=== PATIENT | male | born 1945 | race Caucasian/White ===

== ENCOUNTER → 2020-06-10 15:59 | Outpatient (CLI) | payer MEDICARE, SELFPAY ==
[2020-06-10] MEDS: COVID-19 VACC #1, MRNA(MOD) 100 MCG/0.5 ML VIAL IM (16:04)
== END ==
PROVIDERS: Family Provider Internal Medicine; PCP Internal Medicine; Visit Provider Internal Medicine
DX: Z23 Encounter for immunization (principal)
CPT/HCPCS: 0011A; 91301

== ENCOUNTER → 2020-07-08 09:46 | Outpatient (CLI) | payer MEDICARE, SELFPAY ==
[2020-07-08] MEDS: COVID-19 VACC #2, MRNA(MOD) 100 MCG/0.5 ML VIAL IM (09:52)
== END ==
PROVIDERS: Family Provider Internal Medicine; PCP Internal Medicine; Visit Provider Internal Medicine
DX: Z23 Encounter for immunization (principal)
CPT/HCPCS: 0012A; 91301

== ENCOUNTER 2023-05-24 09:32 | Day surgery (SDC) | payer OTHER, SELFPAY ==
--- NOTE | 2023-05-24 | PATH_ITS ---
[facility] Accession Number: [id number] No. of containers..02 Tissue . 01 Material submitted: . PART A: splenic flexure - SPLENIC POLYP PART B: rectosigmoid junction - RECTOSIGMOID POLYP . 01 Diagnosis: A. COLON, SPLENIC POLYP BIOPSY: - SESSILE SERRATED ADENOMA. -- B. COLON, RECTOSIGMOID, POLYP BIOPSY: - HYPERPLASTIC POLYP. TXN 05/26/2023 1436 Local . 01 Electronically signed: . Jr Massey MD, Pathologist NPI- [id number] . 01 Gross description: . Part A: SPLENIC POLYP: Received in formalin is 1 fragment(s) of rothman, soft tissue measuring 0.3 x 0.2 x 0.2 cm submitted entirely in 1 cassette(s) Part B: RECTOSIGMOID POLYP: Received in formalin is 1 fragment(s) of rothman, soft tissue measuring 0.3 x 0.2 x 0.2 cm submitted entirely in 1 cassette(s) /AAY 05/25/2023 0525 Local . 01 Pathologist provided ICD-10: Z86.010 . 01 CPT . 381326, [id number] Specimen Comment: A courtesy copy of this report has been sent to [phone] Performed at: 01 [facility] [address] [place] [address] [address], [place], [place] [id number] MD Cipriano Rincon MD Phone: [phone]
[2023-05-24 09:52] VITALS: BMI 35.4
[2023-05-24 10:11] VITALS: BP 132/70; PULSE 58; RESP 20; TEMP 37; O2SAT 95
[2023-05-24] MEDS: LACTATED RINGERS 1,000 ML 42 ML IV (10:14)
--- NOTE | 2023-05-24 10:36 | PM.HP.1 ---
History of Present Illness History of Present Illness Date Patient Seen: 05/24/23 Chief complaint: SDC Narrative: Personal history of colon polyps PFSH Medical History (Updated 05/24/23 @ 10:09 by Patel Bhatia RN) A-fib Surgical History (Updated 05/24/23 @ 09:54 by Patel Bhatia RN) Hx of laparoscopic gastric banding Social History Smoking Status: Former smoker alcohol intake: current Meds Home Medications and Allergies Home Medications Medication Instructions Recorded Confirmed Type allopurinol 100 mg tablet 100 mg PO QDAY ##0 01/24/17 05/24/23 History polyethylene glycol 3350 17 gram 17 g PO DAILY ##0 01/24/17 05/24/23 History oral powder packet pravastatin 10 mg tablet 10 mg PO QDAY ##0 01/24/17 05/24/23 History dabigatran etexilate 150 mg 150 mg PO BID 05/24/23 05/24/23 History capsule (Pradaxa) fluticasone propionate 50 1 spray intranasal DAILY PRN 05/24/23 05/24/23 History mcg/actuation nasal allergies spray,suspension losartan 25 mg tablet 25 mg PO DAILY 05/24/23 05/24/23 History Allergies Allergy/AdvReac Type Severity Reaction Status Date / Time No Known Drug Allergies Allergy Verified 05/24/23 09:52 Exam Vital Signs (past 8 hours): - 05/24/23 10:11 Temperature 98.6 F Pulse Rate 58 L Respiratory Rate 20 Blood Pressure 132/70 Pulse Oximetry 95 Oxygen Delivery Method Room Air Oxygen Delivery Method Room Air Narrative Exam Narrative: Oropharynx free of lesions Chest clear to auscultation percussion Cardiac exam reveals no S3 or murmur Assessment & Plan Assessment & Plan narrative: Personal history of colon polyps due for follow-up colonoscopy. Risks, benefits, alternatives have been explained.
--- NOTE | 2023-05-24 10:38 | PM.OP.COLON ---
Operative Date/Time/Diagnoses Date of procedure: 05/24/23 Pre-op diagnosis: See indication and findings Procedure & Clinicians Study performed: Colonoscopy Indications: History of colon polyps Surgeon: Ivelisse Gutierrez Procedure Notes Procedure in detail: After informed consent was obtained the patient was placed in left lateral decubitus position. The video colonoscope was introduced into the rectum slowly advanced to the cecum. On slow withdrawal mucosa was carefully examined. The scope was removed. The patient tolerated procedure well. Preparation was good. Blood loss none Complications none Sedation mac Findings 1. 4 mm polyp at the splenic flexure Jumbo biopsy removed completely 2. 5 mm polyp the rectosigmoid. Jumbo biopsy removed completely 3. Scattered sigmoid and left-sided diverticulosis 4. Otherwise negative colonoscopy to cecum Patient go back on his Pradaxa 2 days. We will review his pathology report but most likely will not need follow-up colonoscopy given his age of 78.
[2023-05-24 11:22] VITALS: BP 93/56; PULSE 52; RESP 12; TEMP 36.3; O2SAT 97
[2023-05-24 11:27] VITALS: BP 105/62; PULSE 53; RESP 12; O2SAT 98
[2023-05-24 11:32] VITALS: BP 112/59; PULSE 49; RESP 10; O2SAT 98
[2023-05-24 11:38] VITALS: BP 120/73; PULSE 56; RESP 20; O2SAT 97
[2023-05-24 11:41] VITALS: BP 120/73; PULSE 52; RESP 16; TEMP 36.4; O2SAT 96
== END 2023-05-24 12:00 | disposition home or self-care (01) ==
PROVIDERS: Family Provider Internal Medicine; PCP Internal Medicine; Referring Provider Internal Medicine Gastroenterology; Visit Provider Internal Medicine Gastroenterology
PROC: 0DJD8ZZ Inspection of Lower Intestinal Tract, Via Natural or Artificial Opening Endoscopic (ICD-10-PCS; CPT 45378; principal; 2023-05-24 10:30)
DX: Z12.11 Encounter for screening for malignant neoplasm of colon (principal); Z86.010 Personal history of colon polyps; K57.30 Diverticulosis of large intestine without perforation or abscess without bleeding; D12.3 Benign neoplasm of transverse colon; K63.5 Polyp of colon
CPT/HCPCS: 45380; J2704

== ENCOUNTER 2025-04-28 16:00 | Emergency (ER) | payer OTHER, SELFPAY ==
[2025-04-28] VITALS (17 sets, daily range): BP systolic 115–142; BP diastolic 58–68; PULSE 74–95; RESP 6–26; TEMP 36.8; O2SAT 90–96; BMI 34.3
--- NOTE | 2025-04-28 16:07 | ED.GENADULT ---
HPI - General Adult <Aisha Calderón MD - Last Filed: 04/29/25 02:13> General Chief complaint: Recheck/Abnormal Lab/Rx Stated complaint: Needs placement, no medical concern. 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 is concerned that she is not able to take care of him. There are no new specific complaints today. He was evaluated at [facility] Emergency Department on April 08. Similar complaints with weakness and failure to thrive. Workup was initiated CT scan of the brain was ordered however scan expedient see did not need 's expectations and they left prior to scanning or further evaluation His called 911 and requested transport to [facility]. Related Data Home Medications ?Medication ?Instructions ?Recorded ?Confirmed allopurinol 100 mg tablet 100 mg PO QDAY ##0 01/24/17 04/30/25 polyethylene glycol 3350 17 gram 17 g PO DAILY ##0 01/24/17 04/30/25 oral powder packet pravastatin 10 mg tablet 10 mg PO QDAY ##0 01/24/17 04/30/25 dabigatran etexilate 150 mg 150 mg PO BID 05/24/23 04/30/25 capsule (Pradaxa) fluticasone propionate 50 1 spray intranasal DAILY PRN 05/24/23 04/30/25 mcg/actuation nasal allergies spray,suspension losartan 25 mg tablet 25 mg PO DAILY 05/24/23 04/30/25 Allergies Allergy/AdvReac Type Severity Reaction Status Date / Time bee venom protein (honey bee) Allergy Severe Swelling Verified 04/28/25 16:32 of Lip/Tongue/Throat Review of Systems <Aisha Calderón MD - Last Filed: 04/29/25 02:13> Review of Systems Narrative: Progressive weakness and failure to thrive along with weight loss Patient History <Aisha Calderón MD - Last Filed: 04/29/25 02:13> Medical History (Updated 04/29/25 @ 01:41 by Aisha Calderón MD) Brain tumor A-fib Surgical History Hx of laparoscopic gastric banding Social History household members: significant other alcohol intake: current alcohol intake frequency: 0-2 drinks per day Exam <Aisha Calderón MD - Last Filed: 04/29/25 02:13> Initial Vital Signs Initial Vital Signs: Vital Signs Pulse Rate 79 04/28/25 16:18 Pulse Oximetry 95 04/28/25 16:18 General: Exceptionally hard of hearing, does not appear to be in acute distress HEENT: Moist mucous membranes, normal sclera with reactive pupils, Respiratory: Lungs with poor overall inspiratory effort but no accessory muscle use. No obvious crackles or rales but exam is limited by poor effort and body habitus Cardiac: Regular rate and rhythm no murmurs no bruits Abdomen: Soft, nontender, Skin: Pale but otherwise Warm and dry, no rashes Neurologic: Globally weak but Grossly neurologically intact with no obvious asymmetries or abnormalities Extremities: No trauma, Psych: Difficult to fully assess psychiatric baseline due to severe hearing loss seems to be appropriate with linear thought process this time <Gavin Person DO - Last Filed: 04/30/25 05:49> Initial Vital Signs Initial Vital Signs: Vital Signs Pulse Rate 79 04/28/25 16:18 Pulse Oximetry 95 04/28/25 16:18 <Sophie Townsend DO - Last Filed: 04/30/25 15:05> Initial Vital Signs Initial Vital Signs: Vital Signs Pulse Rate 79 04/28/25 16:18 Pulse Oximetry 95 04/28/25 16:18 Course <Aisha Calderón MD - Last Filed: 04/29/25 02:13> Orders Ordered: Dabigatran (Dabigatran 75 Mg Capsule) 150 mg PO BID [facility] Last Admin: 04/30/25 10:31 Dose: 150 mg Documented By: ANALISA Sodium Chloride (Normal Saline 0.9%) 1,000 mls @ 84 mls/hr IV CONT [facility] Last Admin: 04/30/25 11:54 Dose: 84 mls/hr Documented By: ANALISA Losartan Potassium (Losartan 25 Mg Tablet) 25 mg PO DAILY [facility] Last Admin: 04/30/25 11:57 Dose: 25 mg Documented By: ANALISA Discontinued Medications Ondansetron HCl (Ondansetron 4 Mg/2 Ml Inj) 4 mg IV NOW ONE Stop: 04/30/25 10:36 Last Admin: 04/30/25 10:37 Dose: 4 mg Documented By: ANALISA Vital Signs Vital signs: Vital Signs - 8 hr 04/30/25 10:15 04/30/25 11:57 04/30/25 12:45 Temperature 97.9 F Pulse Rate 82 77 77 Respiratory Rate 21 16 Blood Pressure 106/58 L 132/65 127/55 L Pulse Oximetry 94 Oxygen Delivery Method Room Air <Gavin Person DO - Last Filed: 04/30/25 05:49> Orders Ordered: Dabigatran (Dabigatran 75 Mg Capsule) 150 mg PO BID [facility] Last Admin: 04/30/25 10:31 Dose: 150 mg Documented By: ANALISA Sodium Chloride (Normal Saline 0.9%) 1,000 mls @ 84 mls/hr IV CONT [facility] Last Admin: 04/30/25 11:54 Dose: 84 mls/hr Documented By: ANALISA Losartan Potassium (Losartan 25 Mg Tablet) 25 mg PO DAILY [facility] Last Admin: 04/30/25 11:57 Dose: 25 mg Documented By: ANALISA Discontinued Medications Ondansetron HCl (Ondansetron 4 Mg/2 Ml Inj) 4 mg IV NOW ONE Stop: 04/30/25 10:36 Last Admin: 04/30/25 10:37 Dose: 4 mg Documented By: ANALISA Vital Signs Vital signs: Vital Signs - 8 hr 04/30/25 10:15 04/30/25 11:57 04/30/25 12:45 Temperature 97.9 F Pulse Rate 82 77 77 Respiratory Rate 21 16 Blood Pressure 106/58 L 132/65 127/55 L Pulse Oximetry 94 Oxygen Delivery Method Room Air <Sophie Townsend DO - Last Filed: 04/30/25 15:05> Orders Ordered: Dabigatran (Dabigatran 75 Mg Capsule) 150 mg PO BID [facility] Last Admin: 04/30/25 10:31 Dose: 150 mg Documented By: ANALISA Sodium Chloride (Normal Saline 0.9%) 1,000 mls @ 84 mls/hr IV CONT [facility] Last Admin: 04/30/25 11:54 Dose: 84 mls/hr Documented By: ANALISA Losartan Potassium (Losartan 25 Mg Tablet) 25 mg PO DAILY [facility] Last Admin: 04/30/25 11:57 Dose: 25 mg Documented By: ANALISA Discontinued Medications Ondansetron HCl (Ondansetron 4 Mg/2 Ml Inj) 4 mg IV NOW ONE Stop: 04/30/25 10:36 Last Admin: 04/30/25 10:37 Dose: 4 mg Documented By: ANALISA Vital Signs Vital signs: Vital Signs - 8 hr 04/30/25 10:15 04/30/25 11:57 04/30/25 12:45 Temperature 97.9 F Pulse Rate 82 77 77 Respiratory Rate 21 16 Blood Pressure 106/58 L 132/65 127/55 L Pulse Oximetry 94 Oxygen Delivery Method Room Air Medical Decision Making <Aisha Calderón MD - Last Filed: 04/29/25 02:13> Lab Data 04/28/25 16:27 04/28/25 16:27 Labs: Lab Results 04/28/25 04/28/25 04/29/25 Range/Units 16:27 20:58 07:45 WBC 7.1 (4.5-11.0) X10^3/uL RBC 4.00 L (4.5-5.9) X10^6/uL Hgb 12.2 L (13.5-17.5) g/dL Hct 35.8 L (41-53) % MCV 89.5 (80-100) fL MCH 30.5 (26-34) PG MCHC 34.1 (30-36) % RDW 14.0 (11.6-14.8) % Plt Count 140 L (150-400) X10^3/uL Neut % (Auto) 68.0 (50-75) % Lymph % (Auto) 18.6 L (25-40) % [place] % (Auto) 10.3 (3-14) % Eos % (Auto) 2.7 (2-4) % Baso % (Auto) 0.4 (0-2) % Neut # (Auto) 4800 (8287-9044) /uL Lymph # (Auto) 1300 (2843-0704) /uL [place] # (Auto) 700 (0-900) /uL Eos # (Auto) 200 (0-450) /uL Baso # (Auto) 0 (0-100) /uL Sodium 138 (137-145) mmol/L Potassium 3.9 (3.4-5.1) mmol/L Chloride 103 (98-107) mmol/L Carbon Dioxide 29 (22-32) mmol/L BUN 25 H (9-20) mg/dL Creatinine 0.90 (0.66-1.25) mg/dL Estimated GFR > 60 (>60) mL/min BUN/Creatinine Ratio 27.8 H (6-22) Glucose 109 H (70-99) mg/dL Calcium 9.1 (8.4-10.2) mg/dL Total Bilirubin 1.5 H (0.2-1.3) mg/dL AST 36 (17-59) IU/L ALT 24 (<50) IU/L Alkaline Phosphatase 67 (38-126) U/L Total Protein 6.6 (6.3-8.2) g/dL Albumin 3.7 (3.5-5.0) g/dL Globulin 2.9 (1.7-4.1) g/dL Albumin/Globulin Ratio 1.3 (1.0-2.8) Cortisol AM Sample 19.3 (4.46-22.7) ug/dL Urine Color Dark yellow Urine Appearance Clear Urine pH 5.5 (4.5-8.0) Ur Specific [place] 1.025 (1.000-1.035) Urine Protein Trace H (Negative) Urine Glucose (UA) Negative (Negative) g/dL Urine Ketones 2+ H (NEGATIVE) Urine Occult Blood Negative (Negative) Urine Nitrate Negative (Negative) Urine Bilirubin 1+ H (NEGATIVE) Ur Bilirubin Confirm Negative (Negative) Urine Urobilinogen 1.0 (0.2) E.U./dL Ur Leukocyte Esterase Negative (NEGATIVE) Urine RBC 0-1/hpf (0-5/HPF) Urine WBC 0-1/hpf (0-5/HPF) Ur Squamous Epith Cells 0-1 /hpf (0-5/HPF) Calcium Oxalate Crystal Occasional H Urine Bacteria Occasional (0-1) (None) Ur Culture Indicated? Cult not indicated Vol Urine Centrifuged 10ml (spun) Imaging Data CT scan - head: Radiologist's Impression: PROCEDURE: CT HEAD/BRAIN WO CON INDICATIONS: decline in status Technologist note: craniectomy for cerebellar tumor 2 weeks ago TECHNIQUE: Noncontrast 4.5 mm thick angled axial sections acquired from the foramen magnum to the vertex, with coronal and sagittal reformats. For radiation dose reduction, the following was used: automated exposure control, adjustment of mA and/or kV according to patient size. COMPARISON: None. FINDINGS: Image quality: Diagnostic CSF spaces: Mildly prominent ventricles. Basal cisterns are patent Volume: Vascular calcifications. 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 Volume loss is present. These findings are [id number] Brain: Presumed left cerebellar surgical site with surrounding mild areas of hemorrhage and edema. No supra tentorial acute hemorrhage identified. Craniofacial structures: Left occipital craniectomy changes. IMPRESSION: Left occipital bone and cerebellar postsurgical changes. Suspect mild surrounding edema and hemorrhage are present. Basal cisterns remain patent. No comparison images are available to assess changes in status. The above findings could be better assessed with MRI. Dictated by: Luc Katz M.D. on 04/28/2025 at 17:14 MR brain: Radiologist's Impression: PROCEDURE: MR HEAD/BRAIN WO CON INDICATIONS: altered post craniectomy 03/31. see CT scan today TECHNIQUE: Noncontrast axial T1 spin echo, axial T2 fast spin echo, sagittal and axial FLAIR, coronal T2 fast spin echo, axial gradient echo, axial diffusion and ADC through the brain. COMPARISON: None. FINDINGS: Image quality: Excellent. CSF Spaces: Basal cisterns are patent. Mild global parenchymal volume loss with associated prominence of the extra-axial spaces and ventricles. Brain: Postoperative changes of wall occipital craniectomy and left cerebellar resection. There is fluid, postoperative blood products and hemosiderin staining seen along the resection cavity. Minimal adjacent edema is present without significant mass effect.Thin area of linear diffusion restriction is present along the superior medial aspect of the resection cavity (11/7). Otherwise, no acute intracranial abnormality. Normal intravascular flow voids are present. Skull and face: Post operative findings of left occipital craniectomy. Calvarium has normal marrow signal otherwise. Orbits appear normal. Sinuses: Moderate left mastoid effusion. Mild paranasal sinus mucosal thickening. IMPRESSION: Postoperative changes of left occipital craniectomy and left cerebellar resection, with thin rim of diffusion restriction along the superior medial resection cavity. Minimal adjacent edema without substantial mass effect. Otherwise, no acute intracranial abnormality. Dictated by: Alexia Larson M.D. on 04/28/2025 at 20:59 [facility] Narrative Medical decision making narrative: CC: Weakness and failure to thrive Complicating co-morbidities: Brain surgery for tumor Data collected from: patient Social determinants of health that may influence the patients condition: Lives at home with his , concern for safety and inability care for self at home Medical records reviewed: Most recent CT scan April 02 done at [place] in [place] shows interval removal of EVD. Ventricles appear stable in size. Slight interval decrease in IVH. Expected temporal evolution of postsurgical changes seen within the left cerebellum. Stable subdural hemorrhage. No new hemorrhage. This is in comparison to CT scan done April 01 and Neurosurgery discharge summary from [place] effort. Admit March 21, discharge April 02.. 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 He was followed by the [place] hospitalist service, eventually discharged with 2 weeks tapering down on dexamethasone, a note that anticoagulation can be restarted on April 09 follow up with his neurosurgeon, wished to be scheduled on April 15 11:10pm Discussoin with Neurosurgy PA, admitted 04/06 and at [facility] for findings similar to today. Orick to be possible steroid withdrawl. Dishcharge home with 1 wk steroid taper. Differential considered: Infection, sepsis, pneumonia, complications of his brain surgery or recurrent tumor Exam documented above, pertinent findings include: Productive cough, very hard of hearing making communication difficult, no obvious abdominal pain Lab Test results independently reviewed as above. Pertinent findings: CBC shows a white count of 7.1. Mild hemoglobin at 12.2 platelets slightly low at 140 Chemistries show no acute kidney injury, bilirubin minimally elevated at 1.5. Remainder of chemistries are reassuring Imaging studies independently reviewed: CT scan does suggest mild surrounding edema and hemorrhage around the cerebellar postsurgical changes, better assessed with MRI. Notes are reviewed he did have an MRI March 27, 2025 so has no contraindications IMPRESSION: Postoperative changes of left occipital craniectomy and left cerebellar resection, with thin rim of diffusion restriction along the superior medial resection cavity. Minimal adjacent edema without substantial mass effect. Otherwise, no acute intracranial abnormality. Consultations: Images pushed to [facility], request review with neurosurgery Spoke with [facility] transfer center. Apparently patient has [place] insurance and the transfer center is unable to allow me to talk to the neurosurgeon. I need to go to the [place] primary care physician's carpenter's assistant. This is causing significant delay in care. Will try to get through to [place] to hopefully get through to a neurosurgeon Treatments: Re-evaluations: discussed CT scan with , discussed MRI to be ordered. She notes that he is sleeping comfortably currently. She also notes that she absolutely can not take him home due to global weakness Discussion: I was eventually able to talk to his [place] neurosurgical team. Imaging studies were reviewed. Recommendation was to have him come down to [facility] for hospitalist consultation for failure to thrive with neurosurgical consultation. Will arrange for 8:00 a.m. cortisol draw and ACTH is recommended by Neurosurgery. I did speak with , [place] physician who noted that there are no beds available but he would ask that the patient be placed on an admit waiting list with [facility]. Presumably [facility] call us with a bed is available. We will recommend contact with them by day shift to make sure all of these processes have been continued across multiple shift changes. Patient's is very pleased that he will be transferred. Patient remains quite somnolent and is not exhibiting additional pain behaviors at this time Patient is signed out to Dr. Maldonado. <Gavin Person, DO - Last Filed: 04/30/25 05:49> Lab Data Labs: Lab Results 04/28/25 04/28/25 04/29/25 Range/Units 16:27 20:58 07:45 WBC 7.1 (4.5-11.0) X10^3/uL RBC 4.00 L (4.5-5.9) X10^6/uL Hgb 12.2 L (13.5-17.5) g/dL Hct 35.8 L (41-53) % MCV 89.5 (80-100) fL MCH 30.5 (26-34) PG MCHC 34.1 (30-36) % RDW 14.0 (11.6-14.8) % Plt Count 140 L (150-400) X10^3/uL Neut % (Auto) 68.0 (50-75) % Lymph % (Auto) 18.6 L (25-40) % [place] % (Auto) 10.3 (3-14) % Eos % (Auto) 2.7 (2-4) % Baso % (Auto) 0.4 (0-2) % Neut # (Auto) 4800 (8660-5668) /uL Lymph # (Auto) 1300 (1046-0190) /uL [place] # (Auto) 700 (0-900) /uL Eos # (Auto) 200 (0-450) /uL Baso # (Auto) 0 (0-100) /uL Sodium 138 (137-145) mmol/L Potassium 3.9 (3.4-5.1) mmol/L Chloride 103 (98-107) mmol/L Carbon Dioxide 29 (22-32) mmol/L BUN 25 H (9-20) mg/dL Creatinine 0.90 (0.66-1.25) mg/dL Estimated GFR > 60 (>60) mL/min BUN/Creatinine Ratio 27.8 H (6-22) Glucose 109 H (70-99) mg/dL Calcium 9.1 (8.4-10.2) mg/dL Total Bilirubin 1.5 H (0.2-1.3) mg/dL AST 36 (17-59) IU/L ALT 24 (<50) IU/L Alkaline Phosphatase 67 (38-126) U/L Total Protein 6.6 (6.3-8.2) g/dL Albumin 3.7 (3.5-5.0) g/dL Globulin 2.9 (1.7-4.1) g/dL Albumin/Globulin Ratio 1.3 (1.0-2.8) Cortisol AM Sample 19.3 (4.46-22.7) ug/dL Urine Color Dark yellow Urine Appearance Clear Urine pH 5.5 (4.5-8.0) Ur Specific [place] 1.025 (1.000-1.035) Urine Protein Trace H (Negative) Urine Glucose (UA) Negative (Negative) g/dL Urine Ketones 2+ H (NEGATIVE) Urine Occult Blood Negative (Negative) Urine Nitrate Negative (Negative) Urine Bilirubin 1+ H (NEGATIVE) Ur Bilirubin Confirm Negative (Negative) Urine Urobilinogen 1.0 (0.2) E.U./dL Ur Leukocyte Esterase Negative (NEGATIVE) Urine RBC 0-1/hpf (0-5/HPF) Urine WBC 0-1/hpf (0-5/HPF) Ur Squamous Epith Cells 0-1 /hpf (0-5/HPF) Calcium Oxalate Crystal Occasional H Urine Bacteria Occasional (0-1) (None) Ur Culture Indicated? Cult not indicated Vol Urine Centrifuged 10ml (spun) MDM Narrative Medical decision making narrative: CC: Weakness and failure to thrive Complicating co-morbidities: Brain surgery for tumor Data collected from: patient Social determinants of health that may influence the patients condition: Lives at home with his , concern for safety and inability care for self at home Medical records reviewed: Most recent CT scan April 02 done at [place] in [place] shows interval removal of EVD. Ventricles appear stable in size. Slight interval decrease in IVH. Expected temporal evolution of postsurgical changes seen within the left cerebellum. Stable subdural hemorrhage. No new hemorrhage. This is in comparison to CT scan done April 01 and Neurosurgery discharge summary from [place] effort. Admit March 21, discharge April 02.. 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 He was followed by the [place] hospitalist service, eventually discharged with 2 weeks tapering down on dexamethasone, a note that anticoagulation can be restarted on April 09 follow up with his neurosurgeon, wished to be scheduled on April 15 11:10pm Discussoin with Neurosurgy PA, admitted 04/06 and at [facility] for findings similar to today. Orick to be possible steroid withdrawl. Dishcharge home with 1 wk steroid taper. Differential considered: Infection, sepsis, pneumonia, complications of his brain surgery or recurrent tumor Exam documented above, pertinent findings include: Productive cough, very hard of hearing making communication difficult, no obvious abdominal pain Lab Test results independently reviewed as above. Pertinent findings: CBC shows a white count of 7.1. Mild hemoglobin at 12.2 platelets slightly low at 140 Chemistries show no acute kidney injury, bilirubin minimally elevated at 1.5. Remainder of chemistries are reassuring Imaging studies independently reviewed: CT scan does suggest mild surrounding edema and hemorrhage around the cerebellar postsurgical changes, better assessed with MRI. Notes are reviewed he did have an MRI March 27, 2025 so has no contraindications IMPRESSION: Postoperative changes of left occipital craniectomy and left cerebellar resection, with thin rim of diffusion restriction along the superior medial resection cavity. Minimal adjacent edema without substantial mass effect. Otherwise, no acute intracranial abnormality. Consultations: Images pushed to [facility], request review with neurosurgery Spoke with [facility] transfer center. Apparently patient has [place] insurance and the transfer center is unable to allow me to talk to the neurosurgeon. I need to go to the [place] primary care physician's carpenter's assistant. This is causing significant delay in care. Will try to get through to [place] to hopefully get through to a neurosurgeon Treatments: Re-evaluations: discussed CT scan with , discussed MRI to be ordered. She notes that he is sleeping comfortably currently. She also notes that she absolutely can not take him home due to global weakness Discussion: I was eventually able to talk to his [place] neurosurgical team. Imaging studies were reviewed. Recommendation was to have him come down to [facility] for hospitalist consultation for failure to thrive with neurosurgical consultation. Will arrange for 8:00 a.m. cortisol draw and ACTH is recommended by Neurosurgery. I did speak with , [place] physician who noted that there are no beds available but he would ask that the patient be placed on an admit waiting list with [facility]. Presumably [facility] call us with a bed is available. We will recommend contact with them by day shift to make sure all of these processes have been continued across multiple shift changes. Patient's is very pleased that he will be transferred. Patient remains quite somnolent and is not exhibiting additional pain behaviors at this time Patient is signed out to Dr. Maldonado. 04/29/25 0311: I had a discussion with the hospitalist Dr. Sousa at [facility] who accepts the patient 2300: Patient was signed out to me by Dr. Noriega, no events over the course of the day, patient still awaiting bed most likely in the morning 04/30/25 0500: Did reach back out to [place] in order to determine bed status, transfer center states possible ED to ED transfer therefore attempted to reach out to [facility] in order to possibly facilitate an ED to ED transfer given recommendation by [place] due to delay in bed status, I did have a discussion with the ED provider over at [facility], ED provider states that he was told that patient should have an available bed at noon and given the fact that patient not needing transfer for urgent/emergent intervention by neurosurgery states would defer transfer at this time. I do believe this is reasonable given patient has been hemodynamically stable with no change in neurological function. Patient will continue to board here until patient obtains bed availability. 0700: Patient was signed out to morning provider, no overnight events, patient still awaiting bed availability <Sophie Townsend DO - Last Filed: 04/30/25 15:05> Lab Data Labs: Lab Results 04/28/25 04/28/25 04/29/25 Range/Units 16:27 20:58 07:45 WBC 7.1 (4.5-11.0) X10^3/uL RBC 4.00 L (4.5-5.9) X10^6/uL Hgb 12.2 L (13.5-17.5) g/dL Hct 35.8 L (41-53) % MCV 89.5 (80-100) fL MCH 30.5 (26-34) PG MCHC 34.1 (30-36) % RDW 14.0 (11.6-14.8) % Plt Count 140 L (150-400) X10^3/uL Neut % (Auto) 68.0 (50-75) % Lymph % (Auto) 18.6 L (25-40) % [place] % (Auto) 10.3 (3-14) % Eos % (Auto) 2.7 (2-4) % Baso % (Auto) 0.4 (0-2) % Neut # (Auto) 4800 (9150-9893) /uL Lymph # (Auto) 1300 (1820-7771) /uL [place] # (Auto) 700 (0-900) /uL Eos # (Auto) 200 (0-450) /uL Baso # (Auto) 0 (0-100) /uL Sodium 138 (137-145) mmol/L Potassium 3.9 (3.4-5.1) mmol/L Chloride 103 (98-107) mmol/L Carbon Dioxide 29 (22-32) mmol/L BUN 25 H (9-20) mg/dL Creatinine 0.90 (0.66-1.25) mg/dL Estimated GFR > 60 (>60) mL/min BUN/Creatinine Ratio 27.8 H (6-22) Glucose 109 H (70-99) mg/dL Calcium 9.1 (8.4-10.2) mg/dL Total Bilirubin 1.5 H (0.2-1.3) mg/dL AST 36 (17-59) IU/L ALT 24 (<50) IU/L Alkaline Phosphatase 67 (38-126) U/L Total Protein 6.6 (6.3-8.2) g/dL Albumin 3.7 (3.5-5.0) g/dL Globulin 2.9 (1.7-4.1) g/dL Albumin/Globulin Ratio 1.3 (1.0-2.8) Cortisol AM Sample 19.3 (4.46-22.7) ug/dL Urine Color Dark yellow Urine Appearance Clear Urine pH 5.5 (4.5-8.0) Ur Specific [place] 1.025 (1.000-1.035) Urine Protein Trace H (Negative) Urine Glucose (UA) Negative (Negative) g/dL Urine Ketones 2+ H (NEGATIVE) Urine Occult Blood Negative (Negative) Urine Nitrate Negative (Negative) Urine Bilirubin 1+ H (NEGATIVE) Ur Bilirubin Confirm Negative (Negative) Urine Urobilinogen 1.0 (0.2) E.U./dL Ur Leukocyte Esterase Negative (NEGATIVE) Urine RBC 0-1/hpf (0-5/HPF) Urine WBC 0-1/hpf (0-5/HPF) Ur Squamous Epith Cells 0-1 /hpf (0-5/HPF) Calcium Oxalate [place] Occasional H Urine Bacteria Occasional (0-1) (None) Ur Culture Indicated? Cult not indicated Vol Urine Centrifuged 10ml (spun) MDM Narrative Medical decision making narrative: CC: Weakness and failure to thrive Complicating co-morbidities: Brain surgery for tumor Data collected from: patient Social determinants of health that may influence the patients condition: Lives at home with his , concern for safety and inability care for self at home Medical records reviewed: Most recent CT scan April 02 done at [facility] in [place] shows interval removal of EVD. Ventricles appear stable in size. Slight interval decrease in IVH. Expected temporal evolution of postsurgical changes seen within the left cerebellum. Stable subdural hemorrhage. No new hemorrhage. This is in comparison to CT scan done April 01 and Neurosurgery discharge summary from [facility] effort. Admit March 21, discharge April 02.. 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 [facility], eventually discharged with 2 weeks tapering down on dexamethasone, a note that anticoagulation can be restarted on April 09 follow up with his neurosurgeon, wished to be scheduled on April 15 11:10pm Discussoin with Neurosurgy PA, admitted 04/06 and at [facility] in [place] for findings similar to today. Orick to be possible steroid withdrawl. Dishcharge home with 1 wk steroid taper. Differential considered: Infection, sepsis, pneumonia, complications of his brain surgery or recurrent tumor Exam documented above, pertinent findings include: Productive cough, very hard of hearing making communication difficult, no obvious abdominal pain Lab Test results independently reviewed as above. Pertinent findings: CBC shows a white count of 7.1. Mild hemoglobin at 12.2 platelets slightly low at 140 Chemistries show no acute kidney injury, bilirubin minimally elevated at 1.5. Remainder of chemistries are reassuring Imaging studies independently reviewed: CT scan does suggest mild surrounding edema and hemorrhage around the cerebellar postsurgical changes, better assessed with MRI. Notes are reviewed he did have an MRI March 27, 2025 so has no contraindications IMPRESSION: Postoperative changes of left occipital craniectomy and left cerebellar resection, with thin rim of diffusion restriction along the superior medial resection cavity. Minimal adjacent edema without substantial mass effect. Otherwise, no acute intracranial abnormality. Consultations: Images pushed to [facility], request review with neurosurgery Spoke with [facility] transfer center. Apparently patient has [place] insurance and the transfer center is unable to allow me to talk to the neurosurgeon. I need to go to the [place] primary care physician's carpenter's assistant. This is causing significant delay in care. Will try to get through to [place] to hopefully get through to a neurosurgeon Treatments: Re-evaluations: discussed CT scan with , discussed MRI to be ordered. She notes that he is sleeping comfortably currently. She also notes that she absolutely can not take him home due to global weakness Discussion: I was eventually able to talk to his [place] neurosurgical team. Imaging studies were reviewed. Recommendation was to have him come down to [facility] for hospitalist consultation for failure to thrive with neurosurgical consultation. Will arrange for 8:00 a.m. cortisol draw and ACTH is recommended by Neurosurgery. I did speak with , [place] physician who noted that there are no beds available but he would ask that the patient be placed on an admit waiting list with [facility]. Presumably [facility] call us with a bed is available. We will recommend contact with them by day shift to make sure all of these processes have been continued across multiple shift changes. Patient's is very pleased that he will be transferred. Patient remains quite somnolent and is not exhibiting additional pain behaviors at this time Patient is signed out to Dr. Maldonado. 04/29/25 0311: I had a discussion with the hospitalist Dr. Sousa at [facility] who accepts the patient 2300: Patient was signed out to me by Dr. Noriega, no events over the course of the day, patient still awaiting bed most likely in the morning 04/30/25 0500: Did reach back out to [place] in order to determine bed status, transfer center states possible ED to ED transfer therefore attempted to reach out to [facility] in order to possibly facilitate an ED to ED transfer given recommendation by [place] due to delay in bed status, I did have a discussion with the ED provider over at [facility], ED provider states that he was told that patient should have an available bed at noon and given the fact that patient not needing transfer for urgent/emergent intervention by neurosurgery states would defer transfer at this time. I do believe this is reasonable given patient has been hemodynamically stable with no change in neurological function. Patient will continue to board here until patient obtains bed availability. 0700: Patient was signed out to morning provider, no overnight events, patient still awaiting bed availability 0730 DR. townsend patient is signed out to me by , awaiting placement at [facility]. Given home meds Pradaxa and losartan. Discharge Plan Departure Patient Disposition: [facility] Clinical Impression: Weakness generalized Failure to thrive Qualifiers: Failure to thrive age range: in adult Qualified Code(s): R62.7 - Adult failure to thrive Prescriptions: No Action allopurinol 100 MG tablet 100 mg PO QDAY Qty: 0 pravastatin 10 MG tablet 10 mg PO QDAY Qty: 0 Patient Comments: fiance states 40 mg daily polyethylene glycol 3350 17 gram Powder In Packet 17 g PO DAILY Qty: 0 losartan 25 mg Tablet 25 mg PO DAILY Patient Comments: patient fiance presented rx bottle after 25mg dose. Bottle RX states 12.5 mg (1/2 tab) daily. provider aware. fluticasone propionate 50 mcg/actuation [place],Suspension 1 spray INTRANASAL DAILY PRN (Reason: allergies) Rx Instructions: administer into each nostril dabigatran etexilate [Pradaxa] 150 mg Capsule 150 mg PO BID Referrals: Fred Reyes MD [Primary Care Provider, Internal Medicine]
--- NOTE | 2025-04-28 16:44 | DI.CT.S_ITS ---
PROCEDURE: CT HEAD/BRAIN WO CON INDICATIONS: decline in status Technologist note: craniectomy for cerebellar tumor 2 weeks ago TECHNIQUE: Noncontrast 4.5 mm thick angled axial sections acquired from the foramen magnum to the vertex, with coronal and sagittal reformats. For radiation dose reduction, the following was used: automated exposure control, adjustment of mA and/or kV according to patient size. COMPARISON: None. FINDINGS: Image quality: Diagnostic CSF spaces: Mildly prominent ventricles. Basal cisterns are patent Volume: Vascular calcifications. 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 Volume loss is present. These findings are [id number] Brain: Presumed left cerebellar surgical site with surrounding mild areas of hemorrhage and edema. No supra tentorial acute hemorrhage identified. Craniofacial structures: Left occipital craniectomy changes. IMPRESSION: Left occipital bone and cerebellar postsurgical changes. Suspect mild surrounding edema and hemorrhage are present. Basal cisterns remain patent. No comparison images are available to assess changes in status. The above findings could be better assessed with MRI. Dictated by: Luc Katz M.D. on 04/28/2025 at 17:14 Approved by: Luc Katz M.D. on 04/28/2025 at 17:16
--- NOTE | 2025-04-28 16:46 | PC.NURSE ---
I recieved a call from a woman claiming to be Pt's . She states that s/p his recent craniotomy she was unable to care for him and that he has had a consistent mental status decline. She provided his home medications as follows: Losartan 12.5mg Qday, Pravastatin 40 mg daily, Pradaxa 150mg BID, and Allopurinol 100mg. The states that he has been increasingly more somnolent, has had new incontinence and is newly non abulatory. She also states that he is DNR. This information is not reflected in the patients chart, nor is the Pt listed as being at this time. The son Waldemar is next of kin and I will attempt to reach out to him to verify the information relayed to me. Waldemar's number [phone]. Wifes number [phone].
--- NOTE | 2025-04-28 16:50 | PC.NURSE ---
Spoke with SO Georgette, states He is not thriving. He is not eating, he has no appetite, he has lost A LOT of weight. States pt weighed 232lbs when he was d/c from the hospital, advsd he was 239 this visit. She states he can stand, but he cant walk. Pt also states he cannot control my steps. Pt denies pain, denies weakness as he is able to stand, states he cannot control his feet.
[2025-04-28 16:52] LABS: Add Manual Diff / Slide Review NO; Hematocrit 35.8 % (41-53); Hemoglobin 12.2 g/dL (13.5-17.5); Lymphocytes Absolute Auto 1300 /uL (1100-4500); Mean Corpuscular HGB Conc 34.1 % (30-36); Mean Corpuscular Hemoglobin 30.5 PG (26-34); Mean Corpuscular Volume 89.5 fL (80-100); Platelet Count 140 X10^3/uL (150-400)
--- NOTE | 2025-04-28 16:58 | PC.NURSE ---
Attempted to contact Pt's son without success.
[2025-04-28 17:03] LABS: Alanine Aminotransferase 24 IU/L (<50); Albumin 3.7 g/dL (3.5-5.0); Albumin Globulin Ratio 1.3 (1.0-2.8); Alkaline Phosphatase 67 U/L (38-126); Blood Urea Nitrogen 25 mg/dL (9-20); Calcium 9.1 mg/dL (8.4-10.2); Carbon Dioxide 29 mmol/L (22-32); Chloride 103 mmol/L (98-107); Estimated Glomerular Filt Rate > 60 mL/min (>60); Globulin 2.9 g/dL (1.7-4.1); Glucose 109 mg/dL (70-99); HEMOLYSIS 21 (0-50); Potassium 3.9 mmol/L (3.4-5.1); Sodium 138 mmol/L (137-145); Total Protein 6.6 g/dL (6.3-8.2)
--- NOTE | 2025-04-28 19:34 | CM.DANOTE ---
DCP Assessment Note: Pt is a 80yo male, resident of [place], is seen in the ED due to weakness. Pt is s/p craniotomy on 03/26/25. Pt lives in a house with his fianceGeorgette (they were scheduled to get on 05/05/25). Pt's Primary Care Provider is Dr. Gavin Elmore and insurance is [place] [facility]. Reviewed chart and discussed with multidisciplinary team pt's medical status and initial discharge needs. ROUTE DELIVERY SERVICE DRIVER able to access pt records at [facility] via [facility]icia - pt was admitted from 03/26/25-04/02/25 and was cleared by PT/OT to discharge home with home health and support of mac. DCP met w/patient at bedside; introduced self and role. Patient was found in bed, alert and oriented, cooperative with assessment. He is hard of hearing because his hearing aid has ran out of battery. Pt confirmed living situation and good support in Georgette lópez. He states he has been attempting to rehabilitate at home with Henri[facility] CHRISTIE but believes he should be in rehab at a SNF. Patient denies a history of SNF Rehab. Pt agreeable to working with therapies and following their recommendations. Pt states his son, Waldemar, is his primary POA at this time and his fiance, is secondary until they are . ROUTE DELIVERY SERVICE DRIVER spoke with pt maribel at bedside, who is found to be frustrated with situation. Pt fiance states they attempted to have pt placed via his PCP but they were not able to do so. Pt fiance confirms Henrique CHRISTIE has come to their home twice since his discharge on 04/02/25. She is hopeful for SNF Rehab placement when appropriate. Per ED Provider, pt might need to be transferred to higher level of care due to diagnostic imaging reports of possible hemorrhage. Consideration: If pt to remain at , pt would benefit from PT/OT evaluations and request an authorization for SNF Rehab from [place] insurance. Will need to discuss pt preference for facility at this point. Plan: Anticipating transfer to higher level of care, ED ROUTE DELIVERY SERVICE DRIVER following for coordination of SNF Rehab if pt remains at our hospital. Mel Monae [facility] Discharge Planning/Care Management CM Discharge Assessment Start: 04/28/25 19:08 Freq: Status: Active Protocol: Document 04/28/25 19:08 MW (Rec: 04/28/25 19:34 MW [id number]) Discharge Planning Assessment Assigned Discharge BRAXTON Leal Spin Instructor Provider Dr. Gavin Elmore [facility] DPOA/Assigned Chaz Medeiros Designee Name Contact Information [phone] Advance Directives? Yes History Provided By Patient,Significant Other,Medical Record Has Patient been Yes admitted in last 30 days? Comment Admitted at [facility] on 03/21/25- 04/02/2025 Prior Living House Arrangements Household Members significant other Type of Drives own vehicle transporation used prior to admit Independent with ADL Yes: Prior to Surgery 's Is patient alert and Yes oriented? Review Status In Process Please Provide Date 04/28/25 Initial DC Assessment Was Performed Next Review Type Continued Stay Review
--- NOTE | 2025-04-28 19:40 | DI.MRI.S_ITS ---
PROCEDURE: MR HEAD/BRAIN WO CON INDICATIONS: altered post craniectomy 03/31. see CT scan today TECHNIQUE: Noncontrast axial T1 spin echo, axial T2 fast spin echo, sagittal and axial FLAIR, coronal T2 fast spin echo, axial gradient echo, axial diffusion and ADC through the brain. COMPARISON: None. FINDINGS: Image quality: Excellent. CSF Spaces: Basal cisterns are patent. Mild global parenchymal volume loss with associated prominence of the extra-axial spaces and ventricles. Brain: Postoperative changes of wall occipital craniectomy and left cerebellar resection. There is fluid, postoperative blood products and hemosiderin staining seen along the resection cavity. Minimal adjacent edema is present without significant mass effect.Thin area of linear diffusion restriction is present along the superior medial aspect of the resection cavity (03/21). Otherwise, no acute intracranial abnormality. Normal intravascular flow voids are present. Skull and face: Post operative findings of left occipital craniectomy. Calvarium has normal marrow signal otherwise. Orbits appear normal. Sinuses: Moderate left mastoid effusion. Mild paranasal sinus mucosal thickening. IMPRESSION: Postoperative changes of left occipital craniectomy and left cerebellar resection, with thin rim of diffusion restriction along the superior medial resection cavity. Minimal adjacent edema without substantial mass effect. Otherwise, no acute intracranial abnormality. Dictated by: Alexia Larson M.D. on 04/28/2025 at 20:59 Approved by: Alexia Larson M.D. on 04/28/2025 at 21:11
[2025-04-28 21:11] LABS: Appearance Urine UA CLEAR; Leukocyte Esterase Urine UA NEGATIVE (NEGATIVE); Nitrite Urine UA NEGATIVE (Negative); pH Urine UA 5.5 (4.5-8.0)
[2025-04-28 21:16] LABS: Culture Indicated Urine Cult Not Indicated
[2025-04-28 21:33] LABS: Bilirubin Urine UA 1+ (NEGATIVE); Glucose Urine UA NEGATIVE (Negative); Ketones Urine UA 2+ (NEGATIVE); Occult Blood Urine UA NEGATIVE (Negative); Protein Urine UA TRACE (Negative); Specific Gravity Urine UA 1.025 (1.000-1.035); Urobilinogen Urine UA 1.0 E.U./dL (0.2)
[2025-04-28 21:34] LABS: Color Urine UA Dark Yellow
[2025-04-28 21:35] LABS: Ictotest Urine Negative (Negative)
[2025-04-29] VITALS (61 sets, daily range): BP systolic 95–155; BP diastolic 50–96; PULSE 60–97; RESP 13–33; O2SAT 90–99
--- NOTE | 2025-04-29 07:30 | PC.NURSE ---
report given to KARTHIKEYAN Gonzalez
[2025-04-29 08:32] LABS: Cortisol AM (Before 10AM) 19.3 ug/dL (4.46-22.7)
--- NOTE | 2025-04-29 08:36 | PC.NURSE ---
0830: Pt to the side of the bed with minimal assist and FWW. Pt continent, urinating in urinal. Pt was able to side step with FWW, encouragement and time 5 steps to sit higher on bed. Changed linens, back in bed, new gown denies pain, neuro intact.
--- NOTE | 2025-04-29 14:36 | PC.NURSE ---
1345: Pt called wanting an update. [facility] still waiting for transfer. She has patient phone and is in contact with pt son. Advsd pt of conversation.
--- NOTE | 2025-04-29 18:18 | PC.NURSE ---
Assisted pt from gurney to wheelchair. Placed call light on wheelchair locked wheels, tucked in with 2 warm blankets. Pt HOOPA so left curtain and door open for safety.
--- NOTE | 2025-04-29 18:22 | PC.NURSE ---
1 Person assist to stand for urinal, and into wheelchair
--- NOTE | 2025-04-29 21:58 | PC.NURSE ---
pt moved to inpatient bed for comfort. Spoke with Georgette on speaker phone with pt to give updates.
[2025-04-30] VITALS (8 sets, daily range): BP systolic 106–145; BP diastolic 55–78; PULSE 70–87; RESP 16–22; TEMP 36.6; O2SAT 94–96
--- NOTE | 2025-04-30 01:46 | PC.NURSE ---
This tech entered the patients room to get a recent set of vitals. The patient said no absolutely not, just let me sleep. I am not . This tech left the room and notified the nurse of patient refusing vitals. Call light is still within reach of patient. KARTHIKEYAN toussaint
--- NOTE | 2025-04-30 01:49 | PC.NURSE ---
pt refusing cardiac monitoring, pt refusing vitals to be taken. pt a/ox4, ABC's intact, NAD noted
--- NOTE | 2025-04-30 07:08 | PC.NURSE ---
report given to KARTHIKEYAN José
--- NOTE | 2025-04-30 08:36 | PC.NURSE ---
Addendum entered by Concha Noble CNA 04/30/25 09:18: Spoke with Alcira at [facility] again @0918. Update is that [facility] has no beds until discharges later this afternoon and that this patient is number one of [facility]'s list to get a bed. Original Note: Called [facility] @0887 and spoke with Alcira for an update on patient transfer. Patient continues to be accepted at [facility] but waiting for a bed placement. At this time [facility] is reporting that no beds are going to be available until after 10am. Alcira is to call back with an update after speaking with the [facility] transfer center.
[2025-04-30] MEDS: DABIGATRAN 75 MG CAPSULE 150 MG PO (10:31)
[2025-04-30] MEDS: ONDANSETRON 4 MG/2 ML INJ IV (10:37)
[2025-04-30] MEDS: SODIUM CHLORIDE 0.9% 1,000 ML 84 ML IV (11:54)
[2025-04-30] MEDS: LOSARTAN 25 MG TABLET PO (11:57)
--- NOTE | 2025-04-30 14:52 | PC.NURSE ---
Report attempted on Deyanira Banuelos. On hold for 6.5 minutes.
== END 2025-04-30 15:27 | disposition short-term general hospital (02) ==
PROVIDERS: Emergency Medicine; Emergency Provider Emergency Medicine; Family Provider Internal Medicine; PCP Internal Medicine
DX: R53.1 Weakness (principal); R62.7 Adult failure to thrive
CPT/HCPCS: 36415; 70450; 70551; 80053; 81001; 82024; 82533; 85025; 87070; 87205; 96374; 99284; 99285; J2405; J7030